=== PATIENT | male | born 1980 | race African-American/Black ===

== ENCOUNTER 2016-12-18 19:22 | Emergency (ER) | payer SELFPAY ==
[~2016-12-18] VITALS: Ht 175.3 cm; Wt 79.5 kg
[~2016-12-18 19:22] MED LIST: GLUCOMETER XX; GLUCOMTESTSTRIPS XX; LEVEMIR SQ; LISI-357 PO; ST JTAB PO; Z.0.INSULINSYR XX; Z.0.LANCETS XX
[2016-12-18 19:24] VITALS: BP 126/73; PULSE 92; RESP 18; TEMP 98.5; O2SAT 96
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
[2016-12-18] MEDS ORDERED: NORC5TAB PO (21:41)
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
[2016-12-18] MEDS ORDERED: oxyCODONE/ACETAMINOPHEN 10 MG/325 MG TAB PO ONE (21:45)
[2016-12-18] MEDS ORDERED: LEVEMIR SQ (21:49)
== END 2016-12-18 22:10 | disposition home or self-care (01) ==
LOC: NEPD 19:22
DX: S42.025A Nondisplaced fracture of shaft of left clavicle, initial encounter for closed fracture (principal); V86.55XA Driver of 3- or 4- wheeled all-terrain vehicle (ATV) injured in nontraffic accident, initial encounter; Y93.89 Activity, other specified
CPT/HCPCS: 29240; 73000; 73030